=== PATIENT | male | born 2000 | race Caucasian/White ===

== ENCOUNTER 2022-01-20 11:47 | Emergency (ER) | payer OTHER, SELFPAY ==
[2022-01-20] MEDS ORDERED: Lidocaine 1% PF 5 ML VIAL ONE (16:14)
[2022-01-20] MEDS ORDERED: cefTRIAXone\\ROCEPHIN 1 GM VIAL ONE (16:14)
[2022-01-20] MEDS ORDERED: Bacitracin 1 PK ONE (16:19)
== END 2022-01-20 16:34 | disposition home or self-care (01) ==
LOC: ERS 11:47
DX: S92.514A Nondisplaced fracture of proximal phalanx of right lesser toe(s), initial encounter for closed fracture (principal); Z79.899 Other long term (current) drug therapy; F17.210 Nicotine dependence, cigarettes, uncomplicated; F17.290 Nicotine dependence, other tobacco product, uncomplicated; W22.8XXA Striking against or struck by other objects, initial encounter
CPT/HCPCS: 12001; 96372; J0696